=== PATIENT | male | born 1980 | race Caucasian/White ===

== ENCOUNTER 2023-02-06 14:24 | Emergency (ER) | payer OTHER, SELFPAY ==
--- NOTE | ~2023-02-06 | XR_ITS ---
EXAMINATION: XR chest 2V Exam Date/Time: 02/06/2023 14:40 CDT HISTORY: chest pain-MIDSTERNAL TO LT SIDE Comparison: None. RESULT: Lines, tubes, and devices: None. Lungs and pleura: Clear. Cardiomediastinal silhouette: Normal. Other: No acute osseous or upper abdominal finding. IMPRESSION: No acute cardiopulmonary process. Reviewed, dictated and finalized at location K.
[2023-02-06 14:28] VITALS: BP 141/96; PULSE 107; RESP 19; TEMP 36.8; O2SAT 98
--- NOTE | 2023-02-06 14:37 | ECG_ITS ---
Measurements Intervals Ponder Rate: 100 P: 43 ID: [id number] QRS: 78 QRSD: 100 T: 11 QT: 338 QTc: 437 Interpretive Statements SINUS TACHYCARDIA OTHERWISE NORMAL ECG NO PREVIOUS ECG AVAILABLE FOR COMPARISON Electronically Signed On 02-06-2023 15:02:57 CDT by Anirudh Silver M.D.
--- NOTE | 2023-02-06 14:38 | ED.GENADULT ---
HPI - General Adult General Chief complaint: Chest Pain Stated complaint: chest tightness/shoulder discomfort Time Seen by Provider: 02/06/23 14:29 History of Present Illness HPI narrative: The patient is an otherwise healthy 42-year-old male with history of low back pain in the past. Yesterday, at noontime, he developed pain in the upper back, between his shoulder blades, radiating to the chest, described as dull. His symptoms have continued today in he is having occasional sharp pains in the chest. He discussed this with his who recommended he come to the ER for evaluation. The symptoms are intermittent. He is currently symptom free. No associated symptoms such as cough rhinorrhea nasal congestion dyspnea nausea vomiting abdominal pain or UTI symptoms. No heavy lifting of objects. Dizziness noted today with diaphoresis. Related Data Home Medications Medication Instructions Recorded Confirmed No Home Medications 02/06/23 02/06/23 Allergies Allergy/AdvReac Type Severity Reaction Status Date / Time No Known Allergies Allergy Verified 02/06/23 14:53 Review of Systems Review of Systems: All systems reviewed & are unremarkable except as noted in HPI and below Constitutional: Constitutional: Denies chills, Denies excessive sweating, Denies fatigue, Denies fever(s), Denies headache(s) and Denies weakness Eyes: Eyes: Denies change in vision and Denies photophobia ENT: Denies dysphagia, Denies dizziness, Denies headache(s), Denies lip swelling, Denies nasal congestion, Denies sore throat and Denies tongue swelling Cardiovascular: Cardiovascular: Reports chest pain, Denies syncope, Denies rapid heart rate and Denies dyspnea Respiratory: Respiratory: Denies cough, Denies dyspnea and Denies wheezing Gastrointestinal: Gastrointestinal: Denies abdominal pain, Denies constipation, Denies dysphagia, Denies diarrhea, Denies nausea and Denies vomiting Genitourinary: Genitourinary: Denies hematuria, Denies dysuria, Denies urinary frequency and Denies urinary urgency Musculoskeletal: Musculoskeletal: Reports back pain, Denies myalgias, Denies arthralgias, Denies joint swelling and Denies numbness Integumentary/Breasts: Skin/Breast: Denies pruritus, Denies erythema and Denies rash Neurologic: Denies confusion, Reports dizziness, Denies syncope, Denies headache(s), Denies focal weakness, Denies numbness and Denies weakness Psychiatric: Psychiatric: Denies anxiety and Denies confusion Endocrine: Endocrine: Denies excessive sweating and Denies fatigue Hematologic/Lymphatic: Hematologic/Lymphatic: Denies easy bleeding and Denies easy bruising Allergic/Immunologic: Allergic/Immunologic: Denies lip swelling, Denies tongue swelling and Denies wheezing Exam Const: General: healthy appearing, no acute distress, alert and well nourished Nutritional Appearance: well nourished Orientation/consciousness: patient oriented x3 Limitations: no limitations Other: diaphoretic HENMT: Head: normal to inspection Ears: external ears normal Face/Nose/Sinus: normal facial exam Face and sinus: normal facial exam Mouth: Yes moist mucous membranes Throat: posterior oropharynx normal Eyes: Conjunctivae: conjunctivae normal Pupils: Equal, round and reactive pupils present EOM: EOMs intact bilaterally Neck: Neck: normal visual inspection and no meningeal signs Chest: Chest palpation & inspection: normal inspection of the chest and no tenderness Resp: Effort & Inspection: normal respiratory effort and not labored Auscultation: clear to auscultation bilaterally, no crackles, no rhonchi and no wheezes Cardio: Rate: regular rate Rhythm: regular rhythm Heart sounds: no murmurs GI: Inspection: non-distended GI Palp: Yes Soft to palpation, No Tenderness to palpation present (GI), No Guarding due to palpation present (GI) and No Rebound tenderness present : General: Yes no CVA tenderness Back/Spine/Pelvis: Back: no CVA tenderne
[2023-02-06 14:44] VITALS: BP 125/89; PULSE 104; RESP 19; O2SAT 98
[2023-02-06 14:51] LABS: Basophils Absolute Auto 0.05 K/mm3 (0.00-0.10); Basophils Percent Auto 0.5 % (0.0-1.0); Eosinophils Percent Auto 0.9 % (1.0-6.0); Hematocrit 44.1 % (40.0-54.0); Hemoglobin 15.7 g/dL (14.0-18.0); Immature Granulocyte Absolute 0.07 K/mm3 (0.00-0.00); Immature Granulocyte Percent A 0.7 % (0.0-0.0); Lymphocytes Absolute Auto 1.25 K/mm3 (1.10-4.50); Lymphocytes Percent Auto 11.9 % (18.0-42.0); Mean Corpuscular HGB Conc 35.6 g/dL (32.0-36.0); Mean Corpuscular Hemoglobin 33.6 pg (27.0-31.0); Mean Corpuscular Volume 94.4 fL (78.0-102.0); Mean Platelet Volume 9.6 fl (8.7-11.0); Monocytes Absolute Auto 1.05 K/mm3 (0.10-0.90); Platelet Count Result 175 K/mm3 (150-420); Red Blood Count 4.67 M/mm3 (4.70-6.10); Red Cell Distribution Width 12.1 % (11.6-14.4); White Blood Count 10.5 K/mm3 (4.8-10.8)
[2023-02-06] MEDS: ACETAMINOPHEN 500 MG TABLET 1000 MG PO (15:00)
[2023-02-06] MEDS: IBUPROFEN 400 MG TABLET 800 MG PO (15:00)
[2023-02-06 15:05] LABS: D Dimer 0.19 mg/L (0.19-0.50)
[2023-02-06 15:06] VITALS: O2SAT 98
[2023-02-06 15:19] LABS: Alanine Aminotransferase 31 U/L (16-63); Alkaline Phosphatase 85 U/L (46-116); Anion Gap 11 mmol/L (8-16); Aspartate Amino Transferase 23 U/L (15-37); Bilirubin,Total 1.3 mg/dL (0.00-1.00); Blood Urea Nitrogen 8 mg/dL (7-18); Calcium 9.4 mg/dL (8.5-10.1); Carbon Dioxide 29 mmol/L (21-32); Chloride 100 mmol/L (98-108); Estimated CRCL calculation 72 ml/min; Estimated Glomerular Filt Rate > 60; Glucose 92 mg/dL (70-99); Osmolality Calculated 288 mOsm/kg (285-295); Potassium 3.9 mmol/L (3.5-5.1); Sodium 140 mmol/L (136-145); Total Protein 7.6 g/dL (6.4-8.2); Troponin I < 4.0 ng/L (0.00-60.4)
== END 2023-02-06 15:42 | disposition home or self-care (01) ==
LOC: CHSED 15:37
PROVIDERS: Emergency Provider Emergency Medicine
DX: R07.9 Chest pain, unspecified (principal)
CPT/HCPCS: 36415; 71046; 80053; 84484; 85025; 85380; 93005; 99284; A9270

== ENCOUNTER 2023-07-20 08:45 | Outpatient (RCR) | payer OTHER, SELFPAY ==
--- NOTE | 2023-07-20 10:34 | OPREHPOC ---
Outpatient Therapy Plan of Care This is a Multidisciplinary Plan of Care that may contain components documented by all disciplines (PT, OT, and ST.) PT Problem 1 PT Problem #1 Knowledge Deficit PT Goal 1 Goal 1. patient to verbalize understanding of HEP exercises and plan moving forward Target Visit 1 Progress Met
--- NOTE | 2023-07-20 10:34 | PTOPEVAL1 ---
Assessment and note entered by JT File, PT Evaluation Information Assessment Status Evaluation Diagnosis patellar tendonitis L knee Onset 07/17/23 Subjective Information patient report he has been having pain in the L knee for about 1 week. he reports he has no had an injection and was given no oral meds for this issues, but reports he is doing better. he reports his knee has been popping and grinding for some time, but last monday he was unable to stand on the L knee. he reports he bought a brace for the knee that day and reports this has helped relieve almost all of his pain. he reports he can still feel the grinding in his knee, but the pain is much decreased. he reports he did have xrays of the L knee. he reports he was told he had very slight signs of arthritis. 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 he reports climbing up and down steps will increase the grinding and symptoms, as well as, working on his knees. Reported Pain Level Pain Score 1: Self Report Assessment PT Clinical Summary mr. lopez is a 43 yo man who presents to skilled PT services for evaluation and treatment of L knee pain. he presents today with an acute flare up of L patellar tendonitis. however, it has been steadily improving on its own with rest and bracing. he presents with 5/5 L LE strength, full rom, and little pain. he was educated in exercises to strengthen the medial quadriceps, and improve flexibility of the L quads/hip flexors. he displays no current needs for continued skilled PT . he was educated his chart will be held open for 3-4 weeks, and to follow up with PT if symptoms return. Plan of Care Interventions Manual Therapy,Patient/Caregiver Educati, Therapeutic Exercise Treatment Frequency and hold therapy for 4 weeks. patient to follow up in Duration off time if symptoms return. if patient has not been back in 4 weeks he will be DC'd. These treatments will address the objective and functional deficits as defined above. The patient will be advanced safely and appropriately in order for the patient to progress towards his/her prior level of function. Additional exercises will be introduced and as well as a comprehensive home exercise program upon discharge, if needed, ?to ensure carryover of functional gains achieved in the clinic. This treatment plan has been reviewed and agreement upon by the patient.
== END 2023-07-20 20:00 | disposition home or self-care (01) ==
LOC: CHSPT 08:45
PROVIDERS: Visit Provider Nurse Practitioner Family
DX: M76.52 Patellar tendinitis, left knee (principal); Q68.2 Congenital deformity of knee
CPT/HCPCS: 97110; 97140; 97161